=== PATIENT | male | born 1970 | race Caucasian/White ===

== ENCOUNTER → 2019-01-20 14:51 | Outpatient (CLI) | payer OTHER, SELFPAY ==
[2019-01-20 15:14] LABS: Basophils % 0.5 % (0.1-2.0); Eosinophils # 0.4 K/mm3 (0.0-0.4); Eosinophils % 5.6 % (0.1-12.0); Hematocrit 45.7 % (42.0-52.0); Hemoglobin 15.3 g/dL (14.1-18.0); Lymphocytes # 1.1 K/mm3 (0.7-4.5); Lymphocytes % 17.2 % (10-50); Mean Corpuscular HGB Conc 33.5 g/dL (31.8-35.4); Mean Corpuscular Hemoglobin 27.5 pg (27.0-31.2); Mean Corpuscular Volume 81.9 fl (80-94); Monocytes # 0.4 K/mm3 (0.1-1.0); Monocytes % 5.7 % (1.7-9.3); Neutrophils # 4.7 K/mm3 (1.8-7.8); Neutrophils % 71.1 % (37.0-80.0); Platelet Count 150 K/mm3 (142-424); Red Blood Count 5.59 M/mm3 (4.60-6.20); Red Cell Distribution Width 14.4 % (11.5-17.5); White Blood Count 6.6 K/mm3 (4.8-10.8)
[2019-01-20 16:09] LABS: Alanine Aminotransferase 30 U/L (12-78); Albumin/Globulin Ratio 1.4 (1.1-1.8); Alkaline Phosphatase 131 U/L (46-116); Anion Gap 11.2 mEq/L (5-15); Aspartate Amino Transferase 16 U/L (15-37); Bilirubin,Total 0.6 mg/dL (0.2-1.0); Blood Urea Nitrogen 9 mg/dL (7-18); Calcium 9.4 mg/dL (8.5-10.1); Carbon Dioxide 30 mmol/L (21.0-32.0); Chloride 104 mmol/L (98-107); Chol/HDL Ratio 4.7 (1-3.5); Cholesterol 161 mg/dL (140-200); Creatinine,Serum 1.41 mg/dL (0.70-1.30); Estimated Glomerular Filt Rate 54 ml/min (>60); Free T4 (Free Thyroxine) 0.89 ng/dl (0.76-1.46); GFR (African American) 65 ML/MIN (>60); Globulin 2.9 gm/dl (1.3-3.2); Glucose 118 mg/dL (74-106); HDL Cholesterol 34 mg/dL (27-67); LDL Cholesterol 90 mg/dL (0-130); Potassium 5.2 mmoL/L (3.5-5.1); Sodium 140 mmol/L (136-145); Thyroid Stimulating Hormone 0.76 uIU/ml (0.358-3.740); Total Protein,Serum 6.9 gm/dL (6.4-8.2); Triglycerides 187 mg/dL (30-200); VLDL Cholesterol 37 mg/dL (0-40)
[2019-01-20 16:21] LABS: Hemoglobin A1C 5.1 % (0.0-7.0)
[2019-01-22 13:10] LABS: Hep A Ab, IgM Negative (Negative); Hepatitis B Core Antibody IgM Negative (Negative); Hepatitis B Surface Antigen Negative (Negative)
[2019-01-23 22:49] LABS: Hepatitis C Antibody 0.1 s/co ratio (0.0-0.9); Thyroid Peroxidase Antibodies 9 IU/mL (0-34); Vitamin D 25 Hydroxy 29.2 ng/mL (30.0-100.0)
== END ==
PROVIDERS: Visit Provider Nurse Practitioner Family
DX: R53.83 Other fatigue (principal); E11.9 Type 2 diabetes mellitus without complications; R68.89 Other general symptoms and signs; D72.829 Elevated white blood cell count, unspecified
CPT/HCPCS: 36415; 80053; 80061; 80074; 82652; 83036; 84439; 84443; 85025; 86376

== ENCOUNTER 2020-10-30 11:16 | Emergency (ER) | payer SELFPAY ==
[2020-10-30 11:31] VITALS: BP 150/87; PULSE 75; RESP 18; TEMP 35.8; O2SAT 99; BMI 15.5
--- NOTE | 2020-10-30 11:37 | HMH.EDUTC ---
[facility] [place] Clinical Impression: Allergic rhinitis Qualifiers: Allergic rhinitis trigger: unspecified Allergic rhinitis seasonality: unspecified Qualified Code(s): J30.9 - Allergic rhinitis, unspecified Disposition: Home, Self-Care Condition on Discharge: Good Instructions: DI for Allergic Rhinitis, Preventing the Spread of Coronavirus Discharge Instructions Additional Instructions: Drink plenty of fluids. Take tylenol for pain or fever. Return if you begin to have difficulty breathing. Follow up with your regular doctor. GO TO THE ER FOR ANY WORSENING SYMPTOMS Prescriptions: Cetirizine HCl [Zyrtec] 10 mg PO DAILY 30 Days #30 cap Transmission Status: Received by [facility] Referrals: PCP,No [Primary Care Provider] - Forms: Work/School Release Time of Disposition: 11:45 Medical Decision Making - Medical Records Medical records reviewed: No: I reviewed the patient's medical records. - Tree Inquiry Pt receiving controlled substance: No Vital Signs: 10/30/20 11:31 10/30/20 11:48 Temperature 96.5 F L 96.5 F L Temperature Source Oral Oral Pulse Rate 75 Pulse Rate [Right Brachial] 75 Respiratory Rate 18 18 Blood Pressure 150/87 H Blood Pressure [Right Arm] 150/87 H Blood Pressure Mean [Right Arm] 108 Blood Pressure Source Automatic Cuff Blood Pressure Source [Right Arm] Automatic Cuff Blood Pressure Position Sitting Blood Pressure Position [Right Arm] Sitting 02 Sat by Pulse Oximetry 99 Oxygen Delivery Method Room Air Room Air [facility] [place] H[place] - General Stated complaint: covid test Time Seen by Provider: 10/30/20 11:37 Mode of Arrival: Ambulatory Source of Information: Patient Limitations: No Limitations Description of Symptoms (Recalled from Triage Doc. by RN): Covid test HEENT Symptoms (Recalled from RN notes): No Resp Symptoms (Recalled from RN notes): No Skin Symptoms (Recalled from RN notes): No MS Symptoms (Recalled from RN notes): No Functional Status (Recalled from RN notes): wnl - History of Present Illness Provider Complaint: He states that when he tried to go into work at [employer] earlier today he was told that he had a fever of 99.6. He denies feeling bad or having any complaints. He does think that he is having some allergy symptoms. - Related Data Previous Rx's Medication Instructions Recorded Cetirizine HCl [Zyrtec] 10 mg PO DAILY 30 Days #30 cap 10/30/20 Allergies Allergy/AdvReac Type Severity Reaction Status Date / Time No Known Allergies Allergy Verified 10/30/20 11:36 - Worker's Comp Is this a Worker's Comp case?: No [facility] History - Hepatitis A Screen Drug use history?: No High risk sexual behaviors?: No History of sexually transmitted infection?: No Currently employed?: No Childcare worker?: No Do you have indoor plumbing?: Yes Do you have electricity?: Yes Attestation statement:: This patient has been screened for Hepatitis A risk factors. I have reviewed the patient's past medical history: Yes Medical History: Denies:: Chronic Obstructive Pulmonary Disease (COPD), Diabetes Mellitus Type 1, Diabetes Mellitus Type 2, Hyperlipidemia, Hypertension, Internal Pacemaker, Migraine, Pulmonary Embolism, Seizures Other Surgeries: Yes: Other. No: Pacemaker Amputation: No Fractures: Yes Comment: Had a cyst removed from behind right ear - Social History Smoking Status: Current every day smoker Tobacco Type: cigarettes # Packs/Day (cigarettes): 1 Alcohol Intake: never Alcohol Intake Frequency:: holidays/special occasions only Substance Use Type: denies use Occupational Status: employed Family Hx:: Asthma, Heart Attack ROS Obtained: Yes All systems reviewed & no additional complaints - Constitutional Constitutional: Denies chills, Denies fever(s), Denies poor appetite, Denies malaise - Eyes Eyes: Denies eye discharge - ENT Ears, Nose, Mouth, and Throat: Denies dizziness, Denies otalgia, Denies sore throat
[2020-10-30 11:48] VITALS: BP 150/87; PULSE 75; RESP 18; TEMP 35.8; O2SAT 99
== END 2020-10-30 11:49 | disposition home or self-care (01) ==
PROVIDERS: Emergency Provider Nurse Practitioner Family
DX: Z20.822 Contact with and (suspected) exposure to COVID-19 (principal); J30.9 Allergic rhinitis, unspecified; F17.210 Nicotine dependence, cigarettes, uncomplicated
CPT/HCPCS: 99202; G0463; U0003

== ENCOUNTER → 2021-04-30 09:17 | Outpatient (CLI) | payer OTHER, SELFPAY | PROVIDERS: Visit Provider Nurse Practitioner | DX: Z20.822 Contact with and (suspected) exposure to COVID-19 (principal) | CPT/HCPCS: C9803; U0003; U0005 ==

== ENCOUNTER → 2021-07-25 13:59 | Outpatient (CLI) | payer BC, SELFPAY ==
--- NOTE | 2021-07-25 14:02 | XR_ITS ---
FINAL REPORT CLINICAL HISTORY: Bilat foot pain, patient states the doc felt knots on the bottom of both feet FINDINGS: RIGHT FOOT Three views of the right foot demonstrate no acute fracture or dislocation. The visualized joint spaces are intact. The soft tissues are unremarkable. IMPRESSION: No acute bony abnormality. Reviewed, Interpreted and Dictated by Kurtis Davis III, MD Transcribed by Alina Drake Authenticated by Kurtis Davis III, MD on 07/25/2021 03:32:31 PM [facility]
--- NOTE | 2021-07-25 14:02 | XR_ITS ---
FINAL REPORT CLINICAL HISTORY: Bilat foot pain, patient states doc felt knots on the bottom of both feet FINDINGS: LEFT FOOT Three views of the left foot demonstrate no acute fracture or dislocation. The visualized joint spaces are intact. The soft tissues are unremarkable. IMPRESSION: No acute bony abnormality. Reviewed, Interpreted and Dictated by Kurtis Davis III, MD Transcribed by Alina Drake Authenticated by Kurtis Davis III, MD on 07/25/2021 03:32:23 PM [facility]
== END ==
PROVIDERS: PCP Nurse Practitioner Family; Visit Provider Nurse Practitioner Family
DX: M79.671 Pain in right foot (principal); M79.672 Pain in left foot
CPT/HCPCS: 73630

== ENCOUNTER → 2021-08-01 13:13 | Outpatient (CLI) | payer BC, SELFPAY | PROVIDERS: Visit Provider Nurse Practitioner | DX: Z20.822 Contact with and (suspected) exposure to COVID-19 (principal) | CPT/HCPCS: C9803; U0003; U0005 ==

== ENCOUNTER → 2021-08-12 11:11 | Outpatient (CLI) | payer BC, SELFPAY ==
[2021-08-13 06:52] LABS: Covid-19 Nasal PCR Sendout Lex NOT DETECTED
== END ==
PROVIDERS: Visit Provider Nurse Practitioner
DX: Z20.822 Contact with and (suspected) exposure to COVID-19 (principal)
CPT/HCPCS: C9803; U0004; U0005

== ENCOUNTER 2021-09-07 13:37 | Emergency (ER) | payer BC, SELFPAY ==
--- NOTE | 2021-09-07 14:50 | HMH.EDUTC ---
[facility] [place] Clinical Impression: Exposure to COVID-19 virus Headache Qualifiers: Headache type: unspecified Headache chronicity pattern: unspecified pattern Intractability: not intractable Qualified Code(s): R51.9 - Headache, unspecified Disposition: Home, Self-Care Condition on Discharge: Good Instructions: DI for COVID-19 (Suspected or Confirmed ), Preventing the Spread of Coronavirus Discharge Instructions Additional Instructions: Drink plenty of fluids. Take tylenol for pain or fever. Return if you begin to have difficulty breathing. Follow up with your regular doctor. GO TO THE ER FOR ANY WORSENING SYMPTOMS Quarantine until you know the results of your covid-19 test. If it is positive, the health department should call you and give you further instructions about your length of Quarantine and other things. Notify your school or workplace of your results and follow their instructions regarding return to work/school. Referrals: Royer Prakash APRN [Primary Care Provider] - Forms: Work/School Release Time of Disposition: 14:59 Medical Decision Making - Medical Records Medical records reviewed: No: I reviewed the patient's medical records. - Tree Inquiry Pt receiving controlled substance: No Vital Signs: 09/07/21 14:58 09/07/21 15:04 Temperature 98 F 98 F Temperature Source Oral Pulse Rate 75 Pulse Rate [Left] 75 Respiratory Rate 18 18 Blood Pressure 132/89 Blood Pressure [Right Arm] 132/89 Blood Pressure Mean [Right Arm] 103 02 Sat by Pulse Oximetry 99 [facility] [place] - General Stated complaint: covid test Time Seen by Provider: 09/07/21 15:00 - History of Present Illness Provider Complaint: He needs a covid test for his work - Related Data Previous Rx's Medication Instructions Recorded naproxen 500 mg tablet 500 mg PO BID #30 tab 07/24/21 prednisone 20 mg tablet 20 mg PO BID 5 Days #10 tab 07/24/21 Allergies Allergy/AdvReac Type Severity Reaction Status Date / Time No Known Allergies Allergy Verified 07/24/21 15:09 [facility] History - Hepatitis A Screen Attestation statement:: This patient has been screened for Hepatitis A risk factors. I have reviewed the patient's past medical history: Yes Medical History: Denies:: Chronic Obstructive Pulmonary Disease (COPD), Diabetes Mellitus Type 1, Diabetes Mellitus Type 2, Hyperlipidemia, Hypertension, Internal Pacemaker, Migraine, Pulmonary Embolism, Seizures Other Surgeries: Yes: Other. No: Pacemaker Amputation: No Fractures: Yes Comment: Had a cyst removed from behind right ear - Social History Smoking Status: Current every day smoker Tobacco Type: cigarettes # Packs/Day (cigarettes): 1 Alcohol Intake: never Alcohol Intake Frequency:: holidays/special occasions only Substance Use Type: denies use Occupational Status: employed Family Hx:: Asthma, Heart Attack ROS Obtained: Yes All systems reviewed & no additional complaints - Constitutional Constitutional: Reports system reviewed and no additional complaints, except as docu - Eyes Eyes: Reports system reviewed and no additional complaints, except as docu - ENT Ears, Nose, Mouth, and Throat: Reports system reviewed and no additional complaints, except as docu - Cardiovascular Cardiovascular: Reports system reviewed and no additional complaints, except as docu - Respiratory Respiratory: Reports system reviewed and no additional complaints, except as docu - Gastrointestinal Gastrointestingal: Reports: system reviewed and no additional complaints, except as docu Physical Exam - General General appearance: alert, in no apparent distress - Head Head exam: atraumatic, normocephalic, normal inspection - Eye Eye exam: Present: normal appearance, PERRL, EOMI - ENT ENT exam: Present: normal exam, normal oropharynx, mucous membranes moist, TM's normal bilaterally, normal external ear exam - Neck Neck exam: Present: normal inspec
[2021-09-07 14:58] VITALS: BP 132/89; PULSE 75; RESP 18; TEMP 36.6; O2SAT 99; BMI 25.5
[2021-09-07 15:04] VITALS: BP 132/89; PULSE 75; RESP 18; TEMP 36.6
== END 2021-09-07 15:06 | disposition home or self-care (01) ==
PROVIDERS: Emergency Provider Nurse Practitioner Family; PCP Nurse Practitioner Family
DX: R51.9 Headache, unspecified (principal); Z20.822 Contact with and (suspected) exposure to COVID-19
CPT/HCPCS: 99202; C9803; G0463; U0003; U0005

== ENCOUNTER 2021-10-22 01:49 | Emergency (ER) | payer BC, SELFPAY ==
[2021-10-22 01:51] VITALS: BP 131/90; PULSE 72; RESP 16; TEMP 37.3; O2SAT 98; BMI 25.5
[2021-10-22 02:08] VITALS: BMI 25.5
--- NOTE | 2021-10-22 02:09 | XR_ITS ---
PROCEDURE INFORMATION: Exam: XR Right Forearm Exam date and time: 10/22/2021 2:15 AM Age: 51 years old Clinical indication: Pain; Lower or forearm; Right; Patient HX: [place] a pop while moving boxes at work; Additional info: Accident TECHNIQUE: Imaging protocol: XR Right forearm. Views: 2 views. COMPARISON: No relevant prior studies available. FINDINGS: Bones/joints: No acute fracture. No dislocation. Soft tissues: Unremarkable. IMPRESSION: No fracture.
--- NOTE | 2021-10-22 02:09 | XR_ITS ---
PROCEDURE INFORMATION: Exam: XR Right Humerus Exam date and time: 10/22/2021 2:11 AM Age: 51 years old Clinical indication: Pain; Upper arm; Right; Patient HX: [place] a pop while moving boxes at work; Additional info: Accident TECHNIQUE: Imaging protocol: XR Right humerus. Views: 2 or more views. COMPARISON: No relevant prior studies available. FINDINGS: Bones/joints: No acute fracture. No dislocation. Soft tissues: Unremarkable. IMPRESSION: No fracture.
--- NOTE | 2021-10-22 02:09 | XR_ITS ---
PROCEDURE INFORMATION: Exam: XR Right Elbow Exam date and time: 10/22/2021 2:16 AM Age: 51 years old Clinical indication: Pain; Elbow; Right; Patient HX: [place] a pop while moving boxes at work; Additional info: Accident TECHNIQUE: Imaging protocol: XR Right elbow. Views: 3 or more views. COMPARISON: No relevant prior studies available. FINDINGS: Bones/joints: No acute fracture. No dislocation. No significant joint effusion. Soft tissues: Unremarkable. IMPRESSION: No fracture.
--- NOTE | 2021-10-22 04:24 | HMH.EDUPEXT ---
ED Disposition Clinical Impression: Elbow injury Qualifiers: Encounter type: initial encounter Laterality: right Qualified Code(s): S59.901A - Unspecified injury of right elbow, initial encounter Disposition: Home, Self-Care Condition on Discharge: Good Instructions: DI for Medial Epicondylitis Additional Instructions: use meds and see pcp and ortho Prescriptions: predniSONE [Prednisone 20mg Tab] 20 mg PO BID #10 tab Transmission Status: Pending to [facility] Referrals: Royer Prakash APRN [Primary Care Provider] - Erick Gaston MD [Staff Physician] - - Critical Care Critical Care Time: No Attestation: On 10/22/21, the high probability of a clinically significant, sudden or life threatening deterioration of the following system(s) required my full and direct attention, intervention and personal management. The time I documented below is in addition to time spent performing reported procedures but includes the following listed in this critical care notation. Medical Decision Making - Medical Records Medical records reviewed: Yes: I reviewed the patient's medical records. - Tree Inquiry Pt receiving controlled substance: No Vital Signs: 10/22/21 01:51 Temperature 99.2 F Temperature Source Oral Pulse Rate [Left Radial] 72 Respiratory Rate 16 Blood Pressure [Right Arm] 131/90 Blood Pressure Mean [Right Arm] 103 02 Sat by Pulse Oximetry 98 Oxygen Delivery Method Room Air - Lab Data Lab results reviewed: Yes: I reviewed the patient's lab results. Orders (Tests/Meds): ED MEDICATIONS Discontinued Medications Generic Name Dose Route Start Last Admin Trade Name Freq PRN Reason Stop Dose Admin Ketorolac Tromethamine 60 mg 10/22/21 02:49 10/22/21 02:55 Ketorolac 60mg/2ml Vial IM 10/22/21 02:50 60 mg ONCE ONE Administration Methylprednisolone Sodium Succinate 125 mg 10/22/21 02:49 10/22/21 02:53 Methylprednisolone Sod Succ 125mg Vial IM 10/22/21 02:50 125 mg ONCE ONE Administration - Radiology Data #1 Image(s): Elbow, Forearm Image Reviewed: Yes I have reviewed radiologist's interpretation Preliminary Findings: No Fracture Seen Medical Decision Narrative: pt with tender rt elbow but neurovacular ok and xrays neg Upper Extremity HPI - General Chief Complaint: Extremity Injury, Upper Stated Complaint: WC 10/22/21 0030 Injury right arm Time Seen by Provider: 10/22/21 02:15 Mode of Arrival: Ambulatory Source of Information: Patient, Spouse, Medical Record Limitations: No Limitations Description of Symptoms (Recalled from ER Triage Doc. 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 complaint: injury to: right, elbow Onset (ago): hour(s) Other Extremity Injury: Right: elbow Other injuries: none Handedness: right Place: work Severity: moderate Associated symptoms: denies other symptoms - Related Data Home Medications Medication Instructions Recorded Confirmed cetirizine 10 mg tablet 10 mg PO tab 09/23/21 09/23/21 Previous Rx's Medication Instructions Recorded diclofenac sodium 1 % topical gel 4 g TOPICAL QID PRN 90 Days #100 g 09/23/21 meloxicam 7.5 mg tablet 7.5 mg PO ONCE 30 Days #30 tab 09/23/21 urea 40 % topical cream 1 applic TOPICAL BID 30 Days #60 09/23/21 applic predniSONE [Prednisone 20mg 20 mg PO BID #10 tab 10/22/21 Tab] Allergies Allergy/AdvReac Type Severity Reaction Status Date / Time No Known Allergies Allergy Verified 09/23/21 09:32 [facility] History - Hepatitis A Screen Drug use history?: No High risk sexual behaviors?: No History of sexually transmitted infection?: No Currently employed?: No Childcare worker?: No Do you have indoor plumbing?:
[2021-10-22 04:33] VITALS: BP 127/85; PULSE 71; RESP 16; TEMP 37.1; O2SAT 99
== END 2021-10-22 04:42 | disposition home or self-care (01) ==
PROVIDERS: Emergency Provider Emergency Medicine; PCP Nurse Practitioner Family
DX: S59.901A Unspecified injury of right elbow, initial encounter (principal); X50.0XXA Overexertion from strenuous movement or load, initial encounter; Y92.69 Other specified industrial and construction area as the place of occurrence of the external cause; Y99.0 Civilian activity done for income or pay; F17.210 Nicotine dependence, cigarettes, uncomplicated
CPT/HCPCS: 73060; 73080; 73090; 96372; 99283

== ENCOUNTER → 2022-11-12 12:27 | Outpatient (CLI) | payer BC, SELFPAY ==
--- NOTE | 2022-11-12 12:34 | XR_ITS ---
FINAL REPORT CLINICAL HISTORY: carpal tunnel FINDINGS: Right wrist Three views were obtained. There is no acute fracture or dislocation. There is no significant positive or negative ulnar variance. The bones are well mineralized. The joint spaces appear normal. No soft tissue abnormality is identified. IMPRESSION: No acute process. Reviewed, Interpreted and Dictated by Kartik Lopez MD Transcribed by Saadia Melendrez Authenticated and [facility]
--- NOTE | 2022-11-12 12:34 | XR_ITS ---
FINAL REPORT CLINICAL HISTORY: carpal tunnel FINDINGS: Left wrist Three views were obtained. There is no acute fracture or dislocation. There is no significant positive or negative ulnar variance. The bones are well mineralized. The joint spaces appear normal. No soft tissue abnormality is identified. IMPRESSION: No acute process. Reviewed, Interpreted and Dictated by Kartik Lopez MD Transcribed by Saadia Melendrez Authenticated and [facility]
== END ==
LOC: RAD 12:28
PROVIDERS: PCP Nurse Practitioner Family; Visit Provider Orthopaedic Surgery
DX: G56.03 Carpal tunnel syndrome, bilateral upper limbs (principal)
CPT/HCPCS: 73110

== ENCOUNTER 2023-08-27 19:08 | Outpatient (CLI) | payer BC, SELFPAY | END 2023-08-27 23:59 | LOC: LAB.DROPOF 19:09 | PROVIDERS: PCP Student in an Organized Health Care Education/Training Program; Visit Provider Student in an Organized Health Care Education/Training Program | DX: R68.89 Other general symptoms and signs (principal); R05.9 Cough, unspecified; R07.0 Pain in throat; R53.83 Other fatigue; R09.89 Other specified symptoms and signs involving the circulatory and respiratory systems | CPT/HCPCS: 87635 ==

== ENCOUNTER 2025-04-28 08:12 | Outpatient (CLI) | payer BC, SELFPAY ==
--- NOTE | 2025-04-28 08:24 | US_ITS ---
FINAL REPORT TECHNIQUE: Sonographic images of the abdomen were obtained in all four quadrants. CLINICAL HISTORY: ABD PAIN, DIARRHEA COMPARISON: None FINDINGS: LIVER: Homogeneous. No focal hepatic lesion or intrahepatic biliary dilatation. GALLBLADDER: Appears partially contracted. Small echogenic foci demonstrating ring down artifact along the gallbladder wall which could represent adenomyomatosis. No evidence of gallstones. The common duct measures 4 mm. This is within normal limits for age. PANCREAS: Tail is obscured, head appears normal RIGHT KIDNEY: 9.9 cm. No hydronephrosis, mass or stone. LEFT KIDNEY: 11.0 cm. No hydronephrosis, mass or stone. SPLEEN: Enlarged at 14.7 cm. No focal splenic lesion. AORTA/IVC: No abdominal aortic aneurysm. Visualized IVC within normal limits. OTHER: No ascites. IMPRESSION: Findings concerning for adenomyomatosis of the gallbladder. Splenomegaly. Reviewed, Interpreted and Dictated by Samina Lamb MD Transcribed by Leila Escudero Authenticated and . [facility]
== END 2025-04-28 23:59 | disposition home or self-care (01) ==
LOC: RAD 08:16
PROVIDERS: PCP Nurse Practitioner; Visit Provider Nurse Practitioner
DX: R16.1 Splenomegaly, not elsewhere classified (principal); R10.9 Unspecified abdominal pain; R19.7 Diarrhea, unspecified
CPT/HCPCS: 76700